=== PATIENT | female | born 1980 | race Caucasian/White ===

== ENCOUNTER 2022-05-19 05:51 | Inpatient (IN) ==
[2022-05-14 16:20] LABS: Bilirubin,Urine Negative (Negative); Glucose,Urine (UA) Negative (Negative); Ketones,Urine Negative (Negative); Nitrite,Urine Negative (Negative); Protein,Urine Negative (Negative); Urine Appearance Clear (Clear); Urine Color Yellow (Yellow); Urine pH 5.5 (4.5-8.0)
[2022-05-14 16:21] LABS: Blood, Urine Large mg/dL (Negative); Urine Urobilinogen 0.2 eU/dL (<2.0)
[2022-05-14 16:22] LABS: Mucus,Urine Occasional /LPF (Occasional); RBC,Urine 29 /HPF (0-4); Squamous Epithelial Cell,Urine Occasional /HPF (0-10)
[2022-05-14 16:26] LABS: Basophils # 0.1 10*3/uL (0.0-0.2); Basophils % 1.2 % (0.0-0.8); Eosinophils # 0.1 10*3/uL (0.0-0.87); Eosinophils % 1.2 % (0.00-10.9); Hematocrit 34.4 VOL% (35.7-47.0); Hemoglobin 10.2 GM/DL (12.0-16.0); Immature Granulocytes % 0.4 %; Immature Granulocytes Absolute 0.05 #; Lymphocytes % 25.1 % (21.3-54.2); Mean Corpuscular HGB Conc 29.7 GM/DL (32-36); Mean Corpuscular Volume 78.4 FL (87-102); Mean Platelet Volume 11.1 FL (9.6-12.0); Monocytes # 0.8 10*3/uL (0.11-0.8); Monocytes % 6.5 % (1.7-12.7); Neutrophils % 65.6 % (38.7-73.9); Platelet Count 399 T/CUMM (130-400); Red Blood Count 4.39 MC/CUMM (3.8-5.5); Red Cell Distribution Width 15.7 % (9.3-17.3); White Blood Count 12.1 T/CUMM (4-12)
[2022-05-14 17:03] LABS: Calcium 9.2 MG/DL (8.5-10.1); Osmolality,Calculated 270.7 MOS/KG (273-304); Potassium 3.9 MMOL/L (3.5-5.1)
[2022-05-14 17:14] LABS: Free T4 (Free Thyroxine) 1.18 NG/DL (0.76-1.46)
[2022-05-14 17:16] LABS: INR 0.9; Partial Thromboplastin Time 24.8 SECS (23.7-32.9)
[2022-05-19] MEDS ORDERED: GABAPENTIN 400 MG CAPSULE PO ONE (06:28)
[2022-05-19] MEDS ORDERED: FAMOTIDINE 20 MG TABLET PO ONE (06:28)
[2022-05-19] MEDS ORDERED: DIAZEPAM 5 MG TABLET PO ONE (06:28)
[2022-05-19] MEDS ORDERED: ACETAMINOPHEN 500 MG TABLET PO ONE (06:28)
[2022-05-19] MEDS ORDERED: LACTATED RINGERS 1,000 ML IV SCH ×2 (06:30→09:30)
[2022-05-19] MEDS ORDERED: ACETAMINOPHEN 500 MG TABLET ONE (06:31)
[2022-05-19] MEDS ORDERED: GABAPENTIN 400 MG CAPSULE ONE (06:31)
[2022-05-19] MEDS ORDERED: LIDOCAINE 2% 5 ML VIAL ONE (06:36)
[2022-05-19] MEDS ORDERED: SEVOFLURANE 1 UNIT/15 MINUTE INH ONE (06:36)
[2022-05-19] MEDS ORDERED: ONDANSETRON 4 MG/2 ML VIAL ONE (06:36)
[2022-05-19] MEDS ORDERED: propofoL 200 MG/20 ML VIAL IV ONE (06:36)
[2022-05-19] MEDS ORDERED: ROCURONIUM 50 MG/5 ML VIAL IV ONE (06:36)
[2022-05-19] MEDS ORDERED: MIDAZOLAM 2 MG/2 ML VIAL ONE (06:36)
[2022-05-19] MEDS ORDERED: fentaNYL 100 MCG/2 ML VIAL ONE ×2 (06:36→07:32)
[2022-05-19] MEDS ORDERED: DEXAMETHASONE 4 MG/1 ML VIAL ONE ×2 (06:36→06:42)
[2022-05-19] MEDS ORDERED: BUPIVACAINE MPF 0.5% /EPI 30 ML VIAL ONE (06:41)
[2022-05-19] MEDS ORDERED: LIDOCAINE 1% 5 ML VIAL ONE (06:42)
[2022-05-19] MEDS ORDERED: SCOPOLAMINE 1.5 MG PATCH TRANSDERM ONE (06:48)
[2022-05-19] MEDS ORDERED: LACTATED RINGERS 1,000 ML IV ONE (07:41)
[2022-05-19] MEDS ORDERED: KETOROLAC 30 MG/1 ML VIAL ONE (07:50)
[2022-05-19] MEDS ORDERED: HYDROmorphone 1 MG/1 ML SYRINGE ONE (08:42)
[2022-05-19] MEDS ORDERED: BISACODYL 10 MG SUPP RECTAL PRN (09:02)
[2022-05-19] MEDS ORDERED: ONDANSETRON 4 MG/2 ML VIAL IV PRN (09:02)
[2022-05-19] MEDS ORDERED: IBUPROFEN 800 MG TABLET PO PRN (09:02)
[2022-05-19] MEDS ORDERED: oxyCODONE/ACETAMINOPHEN 5-325 MG TABLET PO PRN (09:02)
[2022-05-19] MEDS ORDERED: ACETAMINOPHEN 325 MG TABLET PO PRN (09:02)
[2022-05-19] MEDS ORDERED: BENZOCAINE/MENTHOL LOZENGE 18/BOX PO PRN (09:02)
[2022-05-19] MEDS ORDERED: DOCUSATE SODIUM 100 MG CAPSULE PO PRN (09:02)
[2022-05-19] MEDS ORDERED: MAGNESIUM HYDROXIDE SUSP 30 ML UDCUP PO PRN (09:02)
[2022-05-19] MEDS ORDERED: HYDROmorphone 1 MG/1 ML SYRINGE IV PRN (09:15)
[2022-05-19] MEDS ORDERED: MEPERIDINE 50 MG/1 ML VIAL IV PRN (10:29)
[2022-05-20 05:02] LABS: Basophils # 0.1 10*3/uL (0.0-0.2); Basophils % 0.3 % (0.0-0.8); Hemoglobin 8.6 GM/DL (12.0-16.0); Immature Granulocytes % 0.8 %; Immature Granulocytes Absolute 0.18 #; Lymphocytes # 2.3 10*3/uL (1.4-4.0); Lymphocytes % 10.6 % (21.3-54.2); Mean Corpuscular HGB Conc 29.7 GM/DL (32-36); Mean Corpuscular Volume 79.5 FL (87-102); Mean Platelet Volume 10.8 FL (9.6-12.0); Monocytes # 1.5 10*3/uL (0.11-0.8); Monocytes % 6.7 % (1.7-12.7); Neutrophils % 81.6 % (38.7-73.9); Platelet Count 328 T/CUMM (130-400); Red Blood Count 3.65 MC/CUMM (3.8-5.5); Red Cell Distribution Width 15.4 % (9.3-17.3); White Blood Count 22.2 T/CUMM (4-12)
[2022-05-20 05:25] LABS: Hypochromia Slight; Lymphocytes 7 % (20-55); Microcytosis Slight; Platelet Estimate Adequate; Total Cells Counted 100
[2022-05-20 12:06] VITALS: BP 91/52
== END 2022-05-20 13:00 | disposition home or self-care (01) | DRG 743 ==
LOC: N.SDSINP 05:51 → N.OB 10:11
PROVIDERS: ADMIT Specialist; ATTEND Specialist